=== PATIENT | male | born 1975 | race Caucasian/White ===

== ENCOUNTER 2017-05-18 15:39 | Emergency (ER) | payer OTHER ==
[2017-05-18 15:51] VITALS: TEMP 97.3; O2SAT 96
--- NOTE | 2017-05-18 16:04 | EDPHY ---
H & P Time Seen by Provider: 05/18/17 15:55 HPI/ROS: CHIEF COMPLAINT: Tingling, fatigue HISTORY OF PRESENT ILLNESS: The patient is a 41-year-old male who presents to the emergency department a with a history of "pre diabetes." He is treated with metformin. The patient states that after his morning walk he began to feel fatigued. He states this was generalized body fatigue. He had mild dizziness which is resolved. He then felt "cold." No diaphoresis. He had tingling in all 4 extremities. This is also resolved. He denies any focal weakness or numbness. He has had no incoordination is a problems speech. No visual change. Patient denies any recent trauma. No recent illness. No cough or shortness of breath. No abdominal pain. Mild nausea which is resolved. No vomiting. No diarrhea. No dysuria or frequency. The patient took his glucose approximately at 1:30 and it was 104 REVIEW OF SYSTEMS: My complete review of systems is negative except as mentioned in the HPI. Past Medical/Surgical History: Includes prediabetes, anxiety, gout Past surgical history: Left knee surgery Social history: The patient smokes occasionally. He denies drug or alcohol today. Smoking Status: Current some day smoker Physical Exam: GENERAL: Well-appearing, in no acute distress, alert. HEENT: Eyes normal to inspection, normal pharynx, no signs of dehydration. NECK: No thyromegaly, no lymphadenopathy, supple. RESPIRATORY: Clear to auscultation bilaterally, no rales, rhonchi or wheezing. CVS: Regular rate and rhythm, no rubs, murmurs, or gallops. ABDOMEN: Soft, nontender, nondistended, no organomegaly. BACK: Normal to inspection, no CVA tenderness. SKIN: Normal color, no rash, warm, dry. No pallor. EXTREMITIES: No pedal edema, no calf tenderness, no Homans sign or cords, no joint swelling. NEURO/PSYCH: Higher functions: Alert and Oriented x3. Normal speech and cognition. Normal mood and affect. Cranial nerves: Normal as tested. Cerebellar: Normal as tested. Good finger to nose, good [id number], normal gait. Peripheral exam: Normal motor exam. Normal sensation. Normal reflexes. Constitutional: Initial Vital Signs Temperature (C) 36.3 C 05/18/17 15:46 Heart Rate 85 05/18/17 15:46 Respiratory Rate 18 05/18/17 15:46 Blood Pressure 112/76 05/18/17 15:46 O2 Sat (%) 96 05/18/17 15:46 O2 Delivery Mode Room Air Allergies/Adverse Reactions: CLOVES Allergy (Severe, Uncoded 04/18/12 12:35) Home Medications: Medication Instructions Recorded Vitamins & Supplements 05/13/13 Diazoxide [PROGLYCEM] 250 mg PO 05/25/15 LORazepam [Ativan (*)] 0.5 mg PO BID PRN #20 tab 05/25/15 LORazepam [Ativan] 1 mg PO 05/25/15 Medical Decision Making ED Course/Re-evaluation: In the emergency department I discussed possible etiologies with the patient. I answered his questions. A glucose was performed. I discussed the results with the patient. I answered all his questions. I do not feel he needs further testing at this time. I explained this to the patient. He was given warnings prior to leaving. He will return with worsening symptoms. Differential Diagnosis: My differential includes but is not limited to hypoglycemia, hyperglycemia, DKA , HONK, viral illness, electrolyte abnormality, dehydration, bacteremia, sepsis Departure - Departure Disposition: Home, Routine, Self-Care Clinical Impression: Weakness Condition: Good Instructions: Weakness (ED) Additional Instructions: Return with increasing fatigue, weakness, fever, worsening numbness, nausea, vomiting headache or any other concerns. Referrals: Keiry Andrade [Other] - 1-2 days without fail
[2017-05-18 16:32] VITALS: BP 123/79; PULSE 90; RESP 16
== END 2017-05-18 16:22 | disposition home or self-care (01) ==
LOC: CED 15:39
DX: R53.1 Weakness (principal); F17.200 Nicotine dependence, unspecified, uncomplicated
CPT/HCPCS: 82947-QW